=== PATIENT | male | born 1945 | race Caucasian/White ===

== ENCOUNTER 2017-09-11 01:15 | Inpatient (IN) | payer OTHER, MEDICARE ==
[2017-09-11] VITALS (12 sets, daily range): BP systolic 118–149; BP diastolic 65–92; PULSE 75–96; RESP 16–22; TEMP 97–99.2; O2SAT 84–96
[~2017-09-11] VITALS: Ht 175.3 cm; Wt 82.7 kg
--- NOTE | 2017-09-11 02:05 | PD ---
HPI Chief Complaint: Edema Time Seen by Provider: 01:52 Travel History International Travel<30 days: No Contact w/Intl Traveler<30days: No Traveled to known affect area: No History of Present Illness HPI The patient is a 72 year old male who presents to the [facility] emergency department with a history of developing right lower extremity swelling and pain on Saturday. He reports that today became slightly erythematous and warm to touch , therefore he came to the emergency department for evaluation and treatment. He reports that he has had some dyspnea on exertion, however he recently had open heart surgery on August 30. He reports that it was done in [place]. The patient is followed for his primary care by the [facility]. The patient reports having a history of hypertension and coronary artery disease. The patient reports that he has been on a low-dose aspirin daily. He reports that he believes that he is on a diuretic, however he cannot recall the names of his medications and his will be following him to the emergency department. The patient arrived by ambulance services. The patient was noted on arrival to have a room air saturation of 84%. The patient had been placed on 2 L nasal cannula by ambulance services. The patient reports that he had a cough postoperatively, however it has improved with time. The patient reports that on Saturday, he did have a lightheaded sensation and had his right leg buckled underneath him. The patient denies injuring his right leg, however he reports that he had calf pain after this occurred. He denies having any veins harvested from the right leg. He reports that he did have a vein harvested in the left in the wound is healing well. He denies having any known fevers. On review of systems otherwise, he denies having any neck pain, new chest pain, abdominal pain, vomiting, diarrhea, urinary symptoms, or neurologic symptoms. He reports that he has had a diminished appetite. He reports that he is also been constipated with his last bowel movement on Saturday. [facility] Past Medical History Narrative Medical The patient's past medical history is significant for coronary artery disease, hypertension, hyperlipidemia, history of seizure disorder, hypothyroid disorder Cardiovascular Problems: Yes Diabetes: No Diminished Hearing: No Hypertension: Yes Seizures: Yes (1977 LAST ONE) Tetanus Vaccination: < 5 Years Influenza Vaccination: No Past Surgical History Narrative Surgical The patient has a history of coronary artery bypass grafting of 4 vessels on August 30, 2017 and hemorrhoidectomy. Coronary Artery Bypass Graft: Yes (2018) Other Surgery: Yes (HEMMOROIDS REMOVED) Social History Alcohol Use: Yes ([place]) Tobacco Use: No Substance Use: No Allergies-Medications (Allergen,Severity, Reaction): Coded Allergies: bee venom protein (honey bee) (Verified Allergy, Unknown, 09/11/17) Reported Meds & Prescriptions Reported Meds & Active Scripts Active Reported Metoprolol Succinate ER 24 HR (Metoprolol Succinate) 25 Mg Tab 25 Mg PO BID Aspirin Children's (Aspirin) 81 Mg Chew 81 Mg CHEW DAILY Divalproex ER (Divalproex Sodium) 250 Mg Pedro 250 Mg PO BID Oxycodone (Oxycodone HCl) 5 Mg Tab 5 Mg PO Q6H PRN Atorvastatin (Atorvastatin Calcium) 80 Mg Tab 80 Mg PO HS Potassium Chloride ER (Potassium Chloride) 10 Meq Tab 10 Meq PO DAILY Famotidine 20 Mg Tab 20 Mg PO BID Furosemide 20 Mg Tab 20 Mg PO BID Levothyroxine (Levothyroxine Sodium) 50 Mcg Tab 50 Mcg PO DAILY Review of Systems Except as stated in HPI: all other systems reviewed are Neg General / Constitutional: No: Fever Eyes: No: Visual changes HENT: No: Headaches Cardiovascular: Positive: Dyspnea on exertion, No: Chest Pain or Discomfort Respiratory: Positive: Cough, Shortness of Breath Gastrointestinal: Positive: Constipation, Changes in Bowel Habits, Loss of Appetite, No: Nausea, Vomiting, Diarrhea, Abdominal Pain Genitourinary: No: Dysuria Musculoskeletal: Positive: Myalgias, Edema, Pain Skin: Positive Rash Neurologic: No: Weakness, Focal Abnormalities, Change in Mentation, Slurred Speech, Sensory Disturbance Psychiatric: No: Depression Endocrine: No: Polydipsia Hematologic/Lymphatic: No: Easy Bruising Physical Exam Narrative General: The patient is a well-developed well-nourished male in no acute distress. Head and Neck exam: Head is normocephalic atraumatic. Eyes: EOMI, pupils are equal round and reactive to light. Nose: Midline septum with pink mucous membranes Mouth: Dentition unremarkable. Moist mucus membranes. Posterior oropharynx is not erythematous. No tonsillar hypertrophy. Uvula midline. Airway patent. Neck: No palpable lymphadenopathy. No nuchal rigidity. No thyromegaly. Cardiovascular: Irregularly irregular with occasional premature atrial complexes on telemetry without murmurs, gallops, or rubs. No pulse deficit to the extremities on simultaneous auscultation and palpation of his radial artery. The patient has a midline incision over his chest that is healing well. Lungs: With decreased breath sounds in bilateral lung bases with crackles audible. No wheezes or rhonchi. No accessory muscle use. No paroxysmal abdominal breathing or tripoding. Abdomen: Soft, without tenderness to palpation in all 4 quadrants of the abdomen. No guarding, rebound, or rigidity. Normal bowel sounds are audible. No tenderness on palpation of McBurney's point. Extremities: No clubbing or cyanosis. The patient has trace pedal edema of the left lower extremity, 1-2+ of the right lower extremity with slight erythema from the knee down to the foot. The patient has an abrasion over the dorsum of the right foot. He is unsure how he acquired this. On examination of the left leg medial aspect just above the knee patient has an incision that was placed for vein harvest that appears to be healing well. 2+ pulses in all 4 extremities. Back: No spinous process tenderness to palpation. No costovertebral angle tenderness to palpation. Neurologic Exam: Grossly nonfocal. Skin Exam: No rash noted. Intact skin that is warm and dry. Data Data Last Documented VS Vital Signs Date Time Temp Pulse Resp B/P (MAP) Pulse Ox O2 Delivery O2 Flow Rate FiO2 09/11/17 01:57 20 84 Room Air 09/11/17 01:57 3.00 09/11/17 01:48 95 09/11/17 01:40 99.2 129/67 (87) Orders Orders Electrocardiogram (09/11/17 01:52) Complete Blood Count With Diff (09/11/17 01:52) Comprehensive Metabolic Panel (09/11/17 01:52) Creatine Kinase (Cpk) (09/11/17 01:52) Ckmb (Isoenzyme) Profile (09/11/17 01:52) Troponin I (09/11/17 01:52) B-Type Natriuretic Peptide (09/11/17 01:52) Prothrombin Time / Inr (Pt) (09/11/17 01:52) Act Partial Throm Time (Ptt) (09/11/17 01:52) C-Reactive Protein (Crp) (09/11/17 01:52) Urinalysis - C+S If Indicated (09/11/17 01:52) Magnesium (Mg) (09/11/17 01:52) Chest, Single Ap (09/11/17 01:52) Iv Access Insert/Monitor (09/11/17 01:52) Ecg Monitoring (09/11/17 01:52) Oximetry (09/11/17 01:52) Ct Pulmonary Angiogram (09/11/17 01:52) Us Leg Venous Doppler (09/11/17 01:52) CKMB (09/11/17 02:10) CKMB% (09/11/17 02:10) Heparin Inj (Heparin Inj) (09/11/17 03:15) Heparin-D5w 25,000 U/250 Ml (Heparin-D5w (09/11/17 03:15) Act Partial Throm Time (Ptt) (09/11/17 03:05) Cbc No Diff, Includes Plts (09/11/17 03:05) Cbc No Diff, Includes Plts (09/14/17 06:00) Occult Blood (Hemoccult) Stool (09/11/17 03:05) Admit Order (Ed Use Only) (09/11/17 04:17) Labs Laboratory Tests Test 09/11/17 02:10 09/11/17 02:25 09/11/17 03:40 White Blood Count 14.7 TH/MM3 14.2 TH/MM3 Red Blood Count 3.88 MIL/MM3 3.89 MIL/MM3 Hemoglobin 11.9 GM/DL 11.8 GM/DL Hematocrit 35.4 % 35.5 % Mean Corpuscular Volume 91.4 FL 91.2 FL Mean Corpuscular Hemoglobin 30.7 PG 30.3 PG Mean Corpuscular Hemoglobin Concent 33.6 % 33.3 % Red Cell Distribution Width 14.4 % 14.1 % Platelet Count 288 TH/MM3 285 TH/MM3 Mean Platelet Volume 8.4 FL 8.5 FL Neutrophils (%) (Auto) 75.0 % Lymphocytes (%) (Auto) 11.8 % Monocytes (%) (Auto) 11.6 % Eosinophils (%) (Auto) 0.7 % Basophils (%) (Auto) 0.9 % Neutrophils # (Auto) 11.1 TH/MM3 Lymphocytes # (Auto) 1.7 TH/MM3 Monocytes # (Auto) 1.7 TH/MM3 Eosinophils # (Auto) 0.1 TH/MM3 Basophils # (Auto) 0.1 TH/MM3 CBC Comment DIFF FINAL Differential Comment Prothrombin Time 13.0 SEC Prothromb Time International Ratio 1.3 RATIO Activated Partial Thromboplast Time 25.0 SEC 22.7 SEC Blood Urea Nitrogen 21 MG/DL Creatinine 1.39 MG/DL Random Glucose 88 MG/DL Total Protein 7.4 GM/DL Albumin 2.7 GM/DL Calcium Level 8.2 MG/DL Magnesium Level 2.3 MG/DL Alkaline Phosphatase 77 U/L Aspartate Amino Transf (AST/SGOT) 108 U/L Alanine Aminotransferase (ALT/SGPT) 121 U/L Total Bilirubin 1.1 MG/DL Sodium Level 137 MEQ/L Potassium Level 4.4 MEQ/L Chloride Level 103 MEQ/L Carbon Dioxide Level 24.1 MEQ/L Anion Gap 10 MEQ/L Estimat Glomerular Filtration Rate 50 ML/MIN Total Creatine Kinase 116 U/L Creatine Kinase MB LESS THAN 0.5 NG/ML Troponin I 0.14 NG/ML C-Reactive Protein 14.70 MG/DL B-Type Natriuretic Peptide 543 PG/ML Urine Color YELLOW Urine Turbidity CLEAR Urine pH 5.5 Urine Specific [place] 1.022 Urine Protein TRACE mg/dL Urine Glucose (UA) NEG mg/dL Urine Ketones NEG mg/dL Urine Occult Blood NEG Urine Nitrite NEG Urine Bilirubin NEG Urine Urobilinogen LESS THAN 2.0 MG/DL Urine Leukocyte Esterase NEG Urine RBC 1 /hpf Urine WBC 1 /hpf Urine Mucus FEW /lpf Microscopic Urinalysis Comment CULT NOT INDICATED MDM Medical Decision Making Medical Screen Exam Complete: Yes Emergency Medical Condition: Yes Medical Record Reviewed: Yes Interpretation(s) Last Impressions Lower Extremity Ultrasound 09/11/17151 Signed Impressions: Service Date/Time: Monday, September 11, 2017 02:32 - CONCLUSION: Positive for deep venous thrombosis in the proximal calf and popliteal region. James Cid MD Chest X-Ray 09/11/17151 Signed Impressions: Service Date/Time: Monday, September 11, 2017 02:01 - CONCLUSION: Left lower lung consolidation. James Cid MD CT Angiography 09/11/17151 Signed Impressions: Service Date/Time: Monday, September 11, 2017 04:23 - CONCLUSION: 1. Positive for pulmonary embolism with multiple segmental and subsegmental defects involving right upper, right middle, right lower, left upper, and left lingular segments. 2. Left lower lobe consolidation and pleural effusion. James Cid MD Differential Diagnosis Congestive heart failure, versus pericardial effusion, versus DVT, versus PE, versus postop pneumonia Narrative Course During the course of the patient's emergency department visit, the patient's history, examination, and differential diagnosis were reviewed with the patient. The patient was placed on a panel monitor with oximetry and frequent blood pressure monitoring. The patient had IV access obtained and blood work sent for analysis. The patient had an EKG done on arrival. The patient's EKG shows a sinus rhythm with occasional ectopic premature complexes, QRS duration 82 ms, QTC [address] segment elevation is noted. The patient's studies were reviewed and remarkable for a white count of 14.7, hemoglobin 11.9., Platelets 288 with 75 neutrophils, monocytes 11.6. CMP is remarkable for a BUN of 21, creatinine 1.59, glucose 88, calcium 8.2, total bilirubin 1.1, AST 108, ALT 121. CPK is 116, troponin I 0.14 which may be elevated just as a consequence of the patient's renal insufficiency, versus recent injury. C-reactive protein is 14.70 and elevated suggestive of infection , BNP is 543. PT 13, INR 1.3, PTT 25. Urinalysis is unremarkable. A chest x-ray shows a left lower lobe infiltrate. The patient was started on antibiotic for pneumonia coverage given the patient's elevated white blood cell count and elevated CRP. CTA reveals bilateral pulmonary embolisms. Ultrasound of the right lower extremity reveals DVT. The patient was started on heparin per DVT and PE protocol as a bolus then a drip. The patient's results were discussed with the patient, including the plan of care. I explained that further testing and/ or monitoring is indicated based on the patient's history, examination, and/ or laboratory findings. Therefore, I recommended admission for additional evaluation. The patient expressed understanding and was agreeable with this plan. The patient was admitted to the hospital in guarded condition and [facility] Physician Communication Physician Communication The patient's case including history, pertinent physical examination findings, and laboratory studies were discussed with Dr. Mendoza. It was agreed that [facility] Diagnosis Primary Impression: DVT (deep venous thrombosis) Qualified Codes: I82.401 - Acute embolism and thrombosis of unspecified deep veins of right lower extremity Additional Impressions: Pulmonary embolus Qualified Codes: I26.99 - Other pulmonary embolism without acute cor pulmonale Pulmonary infiltrate in left lung on chest x-ray Admitting Information Admitting Physician Requests: Admit Aniyah Enrique MD Sep 11, 2017 02:05
--- NOTE | 2017-09-11 02:18 | RADRPT ---
EXAM DATE/TIME: 09/11/2017 02:01 [facility] COMPARISON: No previous studies available for comparison. INDICATIONS : Shortness of breath. MEDICAL HISTORY : Hypertension. SURGICAL HISTORY : CABG. ENCOUNTER: Initial ACUITY: 1 day PAIN SCORE: 0/10 LOCATION: Bilateral chest FINDINGS: Mild motion blurring of the image. There is dense consolidation in the left mid and lower lung with loss of delineation of the entire left hemidiaphragm. Right lung is clear. The heart is mildly enla rged. Evidence of prior median sternotomy. CONCLUSION: Left lower lung consolidation. James Cid MD on September 11, 2017 at 2:16 Board Certified Radiologist. This report was verified electronically.
[2017-09-11 02:35] LABS: AUTOMATED NEUTROPHIL # 11.1 TH/MM3 (1.8-7.7); BASOPHIL # 0.1 TH/MM3 (0-0.2); BASOPHIL % 0.9 % (0.0-2.0); EOSINOPHIL # 0.1 TH/MM3 (0-0.4); EOSINOPHIL % 0.7 % (0.0-4.0); HEMATOCRIT 35.4 % (39.0-51.0); HEMOGLOBIN 11.9 GM/DL (13.0-17.0); LYMPH % 11.8 % (9.0-44.0); LYMPHOCYTE # 1.7 TH/MM3 (1.0-4.8); MEAN CELL VOLUME 91.4 FL (80.0-100.0); MEAN CORPUSCULAR HEMOGLOBIN 30.7 PG (27.0-34.0); MEAN CORPUSCULAR HGB CONC 33.6 % (32.0-36.0); MEAN PLATELET VOLUME 8.4 FL (7.0-11.0); MONO % 11.6 % (0.0-8.0); MONOCYTE # 1.7 TH/MM3 (0-0.9); PLATELET COUNT 288 TH/MM3 (150-450); RED BLOOD COUNT 3.88 MIL/MM3 (4.50-5.90); RED CELL DISTRIBUTION WIDTH 14.4 % (11.6-17.2); WHITE BLOOD COUNT 14.7 TH/MM3 (4.0-11.0)
[2017-09-11 02:42] LABS: INTERNATIONAL NORMALIZED RATIO 1.3 RATIO
[2017-09-11 02:51] LABS: BILIRUBIN, URINE NEG (NEG); BLOOD, URINE NEG (NEG); GLUCOSE,URINE NEG (NEG); KETONE, URINE NEG (NEG); MUCUS URINE FEW /lpf (OCC); NITRITE,URINE NEG (NEG); PH, URINE 5.5 (5.0-8.5); URINE COLOR YELLOW (YELLW/STRAW); URINE LEUKOCYTE ESTERASE NEG (NEG)
--- NOTE | 2017-09-11 02:54 | RADRPT ---
EXAM DATE/TIME: 09/11/2017 02:32 [facility] COMPARISON: No previous studies available for comparison. INDICATIONS : Right leg pain. Post cardiac surgery 08/30/17. MEDICAL HISTORY : Hypertension. SURGICAL HISTORY : Hemorrhoidectomy. CABG ENCOUNTER: Initial ACUITY: 2 day PAIN SCORE: 4/10 LOCATION: Right leg. TECHNIQUE: Venous ultrasound of the leg was performed from the inguinal ligament to the proximal calf. Real-juliet e, color Doppler and spectral tracing, compression and augmentation techniques were used. FINDINGS: Examination is abnormal demonstrating nonocclusive thrombus in the popliteal vein with lack of augmen tation of flow. There is also occlusive thrombus in the posterior tibial vein and absent flow and au gmentation. Flow is documented in the femoral vein. CONCLUSION: Positive for deep venous thrombosis in the proximal calf and popliteal region. James Cid MD on September 11, 2017 at 2:51 Board Certified Radiologist. This report was verified electronically.
[2017-09-11 02:58] LABS: ALBUMIN 2.7 GM/DL (3.4-5.0); ALKALINE PHOSPHATASE 77 U/L (45-117); ALT (GPT) 121 U/L (12-78); AST (GOT) 108 U/L (15-37); BICARBONATE 24.1 MEQ/L (21.0-32.0); BLOOD UREA NITROGEN 21 MG/DL (7-18); CALCIUM 8.2 MG/DL (8.5-10.1); CHLORIDE 103 MEQ/L (98-107); CREATININE 1.39 MG/DL (0.60-1.30); GLOMERULAR FILTRATION RATE 50 ML/MIN (>89); GLUCOSE,RANDOM 88 MG/DL (74-106); MAGNESIUM 2.3 MG/DL (1.5-2.5); SODIUM (NA) 137 MEQ/L (136-145); TOTAL BILIRUBIN ADULT 1.1 MG/DL (0.2-1.0); TOTAL PROTEIN 7.4 GM/DL (6.4-8.2); TROPONIN I 0.14 NG/ML (0.02-0.05)
[2017-09-11] MEDS ORDERED: HEPARIN SODIUM - IV 10,000 UNITS/10 ML VIAL IV ONE (03:15)
[2017-09-11] MEDS: HEPARIN-D5W 25,000 U/250 ML 250 ML IV PRN (03:45)
[2017-09-11] MEDS ORDERED: DIVA250T3 PO (03:53)
[2017-09-11] MEDS ORDERED: ATOR80TA45 PO (03:53)
[2017-09-11] MEDS ORDERED: FAMO20TA2 PO (03:53)
[2017-09-11] MEDS ORDERED: LEVO50TA4 PO (03:53)
[2017-09-11] MEDS ORDERED: POTA10TA2 PO (03:53)
[2017-09-11] MEDS ORDERED: METO1TAB42 PO (03:53)
[2017-09-11] MEDS ORDERED: OXYC-392 PO (03:53)
[2017-09-11] MEDS ORDERED: FURO20TA PO (03:53)
[2017-09-11] MEDS ORDERED: ASPI81CH7 CHEW (03:53)
[2017-09-11 03:54] LABS: HEMATOCRIT 35.5 % (39.0-51.0); HEMOGLOBIN 11.8 GM/DL (13.0-17.0); MEAN CELL VOLUME 91.2 FL (80.0-100.0); MEAN CORPUSCULAR HEMOGLOBIN 30.3 PG (27.0-34.0); MEAN CORPUSCULAR HGB CONC 33.3 % (32.0-36.0); MEAN PLATELET VOLUME 8.5 FL (7.0-11.0); PLATELET COUNT 285 TH/MM3 (150-450); RED BLOOD COUNT 3.89 MIL/MM3 (4.50-5.90); RED CELL DISTRIBUTION WIDTH 14.1 % (11.6-17.2); WHITE BLOOD COUNT 14.2 TH/MM3 (4.0-11.0)
[2017-09-11] MEDS ORDERED: IOHEXOL 350 MG/ML 10 ML VIAL (for RAD DIAG) IVCONTRAST ONE (04:35)
--- NOTE | 2017-09-11 04:45 | RADRPT ---
EXAM DATE/TIME: 09/11/2017 04:23 [facility] COMPARISON: No previous studies available for comparison. INDICATIONS : Shortness of breath two weeks post CABG. IV CONTRAST: 75 cc Omnipaque 350 (iohexol) IV RADIATION DOSE: 10.62 CTDIvol (mGy) MEDICAL HISTORY : Cardiovascular disease. Hypertension. SURGICAL HISTORY : CABG ENCOUNTER: Initial ACUITY: 1 day PAIN SCALE: 5/10 LOCATION: Bilateral cranial TECHNIQUE: Volumetric scanning of the chest was performed using a pulmonary embolism protocol MIP images were re constructed. Using automated exposure control and adjustment of the mA and/or kV according to patien t size, radiation dose was kept as low as reasonably achievable to obtain optimal diagnostic quality images. DICOM format image data is available electronically for review and comparison. Follow-up recommendations for detected pulmonary nodules are based at a minimum on nodule size and pa tient risk factors according to Fleischner Society Guidelines. FINDINGS: PULMONARY ARTERIES: There are multiple filling defects in subsegmental arteries supplying the right middle lobe and multi ple segments in the right lower lobe. There is also filling defect in the central right upper lobe p ulmonary artery. On the left side, segmental defects seen in the left upper lobe, lingula and one ba maciej segment artery. LUNGS: Multisegmental consolidation left lower lobe air bronchograms. PLEURAE: Left pleural effusion measures 2.0 cm. MEDIASTINUM: There is good visualization of the great vessels of the middle mediastinum. No evidence of mediastin al or hilar adenopathy/mass. CONCLUSION: 1. Positive for pulmonary embolism with multiple segmental and subsegmental defects involving right u pper, right middle, right lower, left upper, and left lingular segments. 2. Left lower lobe consolidation and pleural effusion. James Cid MD on September 11, 2017 at 4:40 Board Certified Radiologist. This report was verified electronically.
[2017-09-11] MEDS ORDERED: AZITHROMYCIN INJ 500 MG in SODIUM CHLOR 0.9% 250 ML INJ 250 ML IV ONE (05:00)
[2017-09-11] MEDS ORDERED: cefTRIAXone INJ 1,000 MG in SODIUM CHLORIDE 0.9% INJ 100 ML IV ONE (05:00)
[2017-09-11] MEDS ORDERED: NALOXONE HCL 0.4 MG/ML AMP IV PUSH PRN (05:45)
[2017-09-11] MEDS ORDERED: SODIUM CHLORIDE 0.9% FLUSH 10 ML FLUSH IV FLUSH PRN (05:45)
[2017-09-11] MEDS: LEVOTHYROXINE SODIUM 50 MCG TAB PO SCH (08:05)
[2017-09-11] MEDS: SODIUM CHLORIDE 0.9% FLUSH 10 ML FLUSH IV FLUSH SCH ×2 (09:00→22:04)
[2017-09-11] MEDS: METOPROLOL SUCCINATE 25 MG EXTENDED RELEASE TAB PO SCH ×2 (09:38→22:03)
[2017-09-11] MEDS: FAMOTIDINE 20 MG TAB PO SCH ×2 (09:38→22:03)
[2017-09-11] MEDS: ASPIRIN 81 MG CHEW TAB CHEW SCH (09:38)
[2017-09-11] MEDS: DIVALPROEX SODIUM E.R. 250 MG TAB PO SCH ×2 (09:39→22:03)
[2017-09-11] MEDS: POTASSIUM CHLORIDE 10 MEQ CONTROLLED RELEASE TAB PO SCH (09:39)
--- NOTE | 2017-09-11 12:50 | HHI.HP ---
[facility] Admission Diagnosis DVT post CABG on 08/30 Diagnoses: (1) Pulmonary embolism (2) CAD (coronary artery disease) (3) DVT of lower limb, acute Chief Complaint: Right lower extremity pain Travel History International Travel<30 Days: No Contact w/Intl Traveler <30 Da: No Traveled to Known Affected Are: No History of Present Illness 72-year-old man with a history of CAD, with recent CABG 4 on 08/30/17 presented to the ED for evaluation of 2-3 days history of right lower extremity swelling and pain rated 4/10 in intensity however without any complaint of shortness of breath. Patient states, after his surgery on 08/30/17 was discharged home on 09/03/17, however did not have any complaint of right lower extremity swelling at a time. 2-3 days post discharge patient noticed some swelling of his right lower extremity mostly secondary to ambulation. He also noted dizziness however denies any shortness of breath. When patient presented to the ED, he had positive Lower extremity Doppler as well as CTA for PE. He denies any GI bleed. Review of Systems Except as stated in HPI: all other systems reviewed are Neg Past Family Social History Past Medical History coronary artery disease, hypertension, hyperlipidemia, history of seizure disorder, hypothyroid disorder Cardiovascular Problems: Yes Hypertension: Yes Seizures: Yes (1977 LAST ONE) Past Surgical History coronary artery bypass grafting of 4 vessels on August 30, 2017 hemorrhoidectomy. Reported Medications Metoprolol Succinate ER 24 HR (Metoprolol Succinate) 25 Mg Tab 25 Mg PO BID Aspirin Children's (Aspirin) 81 Mg Chew 81 Mg CHEW DAILY Divalproex ER (Divalproex Sodium) 250 Mg Pedro 250 Mg PO BID Oxycodone (Oxycodone HCl) 5 Mg Tab 5 Mg PO Q6H PRN Atorvastatin (Atorvastatin Calcium) 80 Mg Tab 80 Mg PO HS Potassium Chloride ER (Potassium Chloride) 10 Meq Tab 10 Meq PO DAILY Famotidine 20 Mg Tab 20 Mg PO BID Furosemide 20 Mg Tab 20 Mg PO BID Levothyroxine (Levothyroxine Sodium) 50 Mcg Tab 50 Mcg PO DAILY Allergies: Coded Allergies: bee venom protein (honey bee) (Verified Allergy, Unknown, 09/11/17) Family History Father from complication of CHF Mother from complication of sclerosis of the liver Social History Alcohol Use: Yes (OCASS) Tobacco Use: No Substance Use: No Physical Exam Vital Signs Vital Signs Date Time Temp Pulse Resp B/P (MAP) Pulse Ox O2 Delivery O2 Flow Rate FiO2 09/11/17 10:59 89 17 122/65 (84) 92 Nasal Cannula 4.00 09/11/17 07:04 84 22 122/69 (86) 95 Nasal Cannula 4.00 09/11/17 05:46 88 20 126/67 (86) Nasal Cannula 4.00 94 09/11/17 01:57 20 84 Room Air 09/11/17 01:57 20 91 Nasal Cannula 3.00 09/11/17 01:48 95 20 91 Nasal Cannula 3.00 09/11/17 01:40 99.2 96 20 129/67 (87) 92 Physical Exam GENERAL: This is a well-nourished, well-developed patient, in no apparent distress. SKIN: No rashes, ecchymoses or lesions. Cool and dry. HEAD: Atraumatic. Normocephalic. No temporal or scalp tenderness. EYES: Pupils equal round and reactive. Extraocular motions intact. No scleral icterus. No injection or drainage. ENT: Nose without bleeding, purulent drainage or septal hematoma. Throat without erythema, tonsillar hypertrophy or exudate. Uvula midline. Airway patent. NECK: Trachea midline. No JVD or lymphadenopathy. Supple, nontender, no meningeal signs. CARDIOVASCULAR: Regular rate and rhythm without murmurs, gallops, or rubs. RESPIRATORY: Clear to auscultation. Breath sounds equal bilaterally. No wheezes , rales, or rhonchi. GASTROINTESTINAL: Abdomen soft, non-tender, nondistended. No hepato-splenomegaly , or palpable masses. No guarding. MUSCULOSKELETAL: Extremities without clubbing, cyanosis, or edema. No joint tenderness, effusion, or edema noted. + right calf tenderness. + Homans sign bilaterally RLE. Right leg>Left in size NEUROLOGICAL: Awake and alert. Cranial nerves II through XII intact. Motor and sensory grossly within normal limits. Five out of 5 muscle strength in all muscle groups. Normal speech. Laboratory Laboratory Tests Test 09/11/17 02:10 09/11/17 02:25 09/11/17 03:40 09/11/17 09:45 White Blood Count 14.7 14.2 Red Blood Count 3.88 3.89 Hemoglobin 11.9 11.8 Hematocrit 35.4 35.5 Mean Corpuscular Volume 91.4 91.2 Mean Corpuscular Hemoglobin 30.7 30.3 Mean Corpuscular Hemoglobin Concent 33.6 33.3 Red Cell Distribution Width 14.4 14.1 Platelet Count 288 285 Mean Platelet Volume 8.4 8.5 Neutrophils (%) (Auto) 75.0 Lymphocytes (%) (Auto) 11.8 Monocytes (%) (Auto) 11.6 Eosinophils (%) (Auto) 0.7 Basophils (%) (Auto) 0.9 Neutrophils # (Auto) 11.1 Lymphocytes # (Auto) 1.7 Monocytes # (Auto) 1.7 Eosinophils # (Auto) 0.1 Basophils # (Auto) 0.1 CBC Comment DIFF FINAL Differential Comment Prothrombin Time 13.0 Prothromb Time International Ratio 1.3 Activated Partial Thromboplast Time 25.0 22.7 93.3 Blood Urea Nitrogen 21 Creatinine 1.39 Random Glucose 88 Total Protein 7.4 Albumin 2.7 Calcium Level 8.2 Magnesium Level 2.3 Alkaline Phosphatase 77 Aspartate Amino Transf (AST/SGOT) 108 Alanine Aminotransferase (ALT/SGPT) 121 Total Bilirubin 1.1 Sodium Level 137 Potassium Level 4.4 Chloride Level 103 Carbon Dioxide Level 24.1 Anion Gap 10 Estimat Glomerular Filtration Rate 50 Total Creatine Kinase 116 Creatine Kinase MB LESS THAN 0.5 Troponin I 0.14 C-Reactive Protein 14.70 B-Type Natriuretic Peptide 543 Urine Color YELLOW Urine Turbidity CLEAR Urine pH 5.5 Urine Specific [place] 1.022 Urine Protein TRACE Urine Glucose (UA) NEG Urine Ketones NEG Urine Occult Blood NEG Urine Nitrite NEG Urine Bilirubin NEG Urine Urobilinogen LESS THAN 2.0 Urine Leukocyte Esterase NEG Urine RBC 1 Urine WBC 1 Urine Mucus FEW Microscopic Urinalysis Comment CULT NOT INDICATED Date/Time Source Procedure Growth Status 09/11/17 05:35 Blood Peripheral Aerobic Blood Culture Pending Received 09/11/17 05:35 Blood Peripheral Anaerobic Blood Culture Pending Received Result Diagram: 09/11/17 0340 09/11/17 0210 Imaging Last Impressions Lower Extremity Ultrasound 3/21/18 0152 Signed Impressions: Service Date/Time: Monday, September 11, 2017 02:32 - CONCLUSION: Positive for deep venous thrombosis in the proximal calf and popliteal region. James Cid MD Chest X-Ray 09/11/17151 Signed Impressions: Service Date/Time: Monday, September 11, 2017 02:01 - CONCLUSION: Left lower lung consolidation. James Cid MD CT Angiography 09/11/17151 Signed Impressions: Service Date/Time: Monday, September 11, 2017 04:23 - CONCLUSION: 1. Positive for pulmonary embolism with multiple segmental and subsegmental defects involving right upper, right middle, right lower, left upper, and left lingular segments. 2. Left lower lobe consolidation and pleural effusion. James Cid MD Septic Shock Reassessment Septic shock perfusion: reassessment completed Caprini VTE Risk Assessment Caprini VTE Risk Assessment: Mod/High Risk (score >= 2) Caprini Risk Assessment Model Point Value = 1 Point Value = 2 Point Value = 3 Point Value = 5 Age 41-60 Minor surgery BMI > 25 kg/m2 Swollen legs Varicose veins or History of unexplained or recurrent spontaneous Oral contraceptives or hormone replacement Sepsis (< 1 month) Serious lung disease, including pneumonia (< 1 month) Abnormal pulmonary function Acute myocardial infarction Congestive heart failure (< 1 month) History of inflammatory bowel disease Medical patient at bed rest Age 61-74 Arthroscopic surgery Major open surgery (> 45 min) Laparoscopic surgery (> 45 min) Malignancy Confined to bed (> 72 hours) Immobilizing plaster cast Central venous access Age >= 75 History of VTE Family history of VTE Factor V Leiden Prothrombin [id number] Lupus anticoagulant Anticardiolipin antibodies Elevated serum homocysteine Heparin-induced thrombocytopenia Other congenital or acquired thrombophilia Stroke (< 1 month) Elective arthroplasty Hip, pelvis, or leg fracture Acute spinal cord injury (< 1 month) Prophylaxis Regimen Total Risk Factor Score Risk Level Prophylaxis Regimen 0-1 Low Early ambulation 2 Moderate Order ONE of the following: *Sequential Compression Device (SCD) *Heparin 5000 units SQ BID 3-4 Higher Order ONE of the following medications: *Heparin 5000 units SQ TID *Enoxaparin/Lovenox 40 mg SQ daily (WT < 150 kg, CrCl > 30 mL/min) *Enoxaparin/Lovenox 30 mg SQ daily (WT < 150 kg, CrCl > 10-29 mL/min) *Enoxaparin/Lovenox 30 mg SQ BID (WT < 150 kg, CrCl > 30 mL/min) AND/OR *Sequential Compression Device (SCD) 5 or more Highest Order ONE of the following medications: *Heparin 5000 units SQ TID (Preferred with Epidurals) *Enoxaparin/Lovenox 40 mg SQ daily (WT < 150 kg, CrCl > 30 mL/min) *Enoxaparin/Lovenox 30 mg SQ daily (WT < 150 kg, CrCl > 10-29 mL/min) *Enoxaparin/Lovenox 30 mg SQ BID (WT < 150 kg, CrCl > 30 mL/min) AND *Sequential Compression Device (SCD) Assessment and Plan Problem List: (1) Pulmonary embolism ICD Code: I26.99 - Other pulmonary embolism without acute cor pulmonale (2) DVT of lower limb, acute ICD Code: I82.409 - Acute embolism and thrombosis of unspecified deep veins of unspecified lower extremity (3) HCAP (healthcare-associated pneumonia) ICD Code: J18.9 - Pneumonia, unspecified organism (4) CAD (coronary artery disease) ICD Code: I25.10 - Atherosclerotic heart disease of habematolel coronary artery without angina pectoris Assessment and Plan 72-year-old man with Pulmonary embolism Right lower extremity DVT CTA noted and review with finding of pulmonary embolism Right lower extremity Doppler positive for DVT Currently on heparin drip and consult hematology for evaluation Hospital acquired pneumonia in a patient with recent hospitalization CTA positive for left lower lobe consolidation Continue Rocephin and azithromycin Leukocytosis Secondary to above infectious process Recent CABG 08/30/17 CAD Resume outpatient medications History of hypertension, hyperlipidemia, history of seizure disorder, hypothyroid disorder Resume outpatient medications DVT prophylaxis: Heparin drip Code Status Full code Discussed Condition With Patient Physician Certification 2 Midnight Certification Type: Admission for Inpatient Services Order for Inpatient Services The services are ordered in accordance with Medicare regulations or non- Medicare payer requirements, as applicable. In the case of services not specified as inpatient-only, they are appropriately provided as inpatient services in accordance with the 2-midnight benchmark. Estimated LOS (days): 2 days is the estimated time the patient will need to remain in the hospital, assuming treatment plan goals are met and no additional complications. Post-Hospital Plan: Not yet determined Maurisio Donis MD Sep 11, 2017 12:50
--- NOTE | 2017-09-11 20:30 | EKG ---
Date Performed: 09/11/2017 Time Performed: 01:53:29 PTAGE: 72 years EKG: Sinus rhythm WITH OCCASIONAL ECTOPIC PREMATURE COMPLEXES MINIMAL VOLTAGE CRITERIA FOR LVH, CONSIDER NORMAL VARIAN T NONSPECIFIC T-WAVE ABNORMALITY BORDERLINE ECG INTERPRETATION BASED ON A DEFAULT AGE OF 40 YEARS NO PREVIOUS TRACING DOCTOR: Ge Rodrigez Interpretating Date/Time 09/11/2017 20:29:04
[2017-09-11] MEDS: ATORVASTATIN 80 MG TAB PO SCH (22:03)
[2017-09-12] VITALS (26 sets, daily range): BP systolic 107–131; BP diastolic 66–77; PULSE 75–173; RESP 18–20; TEMP 97.5–98.5; O2SAT 92–97
[2017-09-12] MEDS: HEPARIN-D5W 25,000 U/250 ML 250 ML IV PRN (01:18)
[2017-09-12] MEDS: AZITHROMYCIN 250 MG TAB PO SCH (06:34)
[2017-09-12] MEDS: LEVOTHYROXINE SODIUM 50 MCG TAB PO SCH (06:34)
[2017-09-12] MEDS: cefTRIAXone INJ 1,000 MG in SODIUM CHLORIDE 0.9% INJ 100 ML IV SCH (07:42)
[2017-09-12 09:06] LABS: AUTOMATED NEUTROPHIL # 8.3 TH/MM3 (1.8-7.7); BASOPHIL # 0.1 TH/MM3 (0-0.2); BASOPHIL % 0.9 % (0.0-2.0); EOSINOPHIL # 0.2 TH/MM3 (0-0.4); EOSINOPHIL % 1.9 % (0.0-4.0); HEMATOCRIT 33.8 % (39.0-51.0); HEMOGLOBIN 11.2 GM/DL (13.0-17.0); LYMPH % 13.6 % (9.0-44.0); LYMPHOCYTE # 1.5 TH/MM3 (1.0-4.8); MEAN CELL VOLUME 91.6 FL (80.0-100.0); MEAN CORPUSCULAR HEMOGLOBIN 30.3 PG (27.0-34.0); MEAN CORPUSCULAR HGB CONC 33.1 % (32.0-36.0); MEAN PLATELET VOLUME 8.9 FL (7.0-11.0); MONO % 10.2 % (0.0-8.0); MONOCYTE # 1.2 TH/MM3 (0-0.9); NEUT % 73.4 % (16.0-70.0); PLATELET COUNT 285 TH/MM3 (150-450); RED BLOOD COUNT 3.69 MIL/MM3 (4.50-5.90); WHITE BLOOD COUNT 11.3 TH/MM3 (4.0-11.0)
[2017-09-12] MEDS: ASPIRIN 81 MG CHEW TAB CHEW SCH (09:22)
[2017-09-12] MEDS: FAMOTIDINE 20 MG TAB PO SCH (09:22)
[2017-09-12] MEDS: METOPROLOL SUCCINATE 25 MG EXTENDED RELEASE TAB PO SCH ×2 (09:22→22:18)
[2017-09-12] MEDS: ENOXAPARIN SODIUM 80 MG/0.8 ML SYRINGE SQ SCH ×2 (09:22→22:19)
[2017-09-12] MEDS: DIVALPROEX SODIUM E.R. 250 MG TAB PO SCH ×2 (09:23→22:19)
[2017-09-12] MEDS: FUROSEMIDE 20 MG TAB PO SCH ×2 (09:23→20:01)
[2017-09-12] MEDS: POTASSIUM CHLORIDE 10 MEQ CONTROLLED RELEASE TAB PO SCH (09:23)
[2017-09-12] MEDS: SODIUM CHLORIDE 0.9% FLUSH 10 ML FLUSH IV FLUSH SCH ×2 (09:24→22:19)
--- NOTE | 2017-09-12 09:25 | MB ---
cc: Roseann Erickson MD,Maurisio SCALES DATE: 09/11/2017 REFERRING PHYSICIAN: Dr. Maurisio Donis CHIEF COMPLAINT: Dr. Donis requests a consultation for Mr. Millard regarding newly diagnosed right lower extremity deep vein thrombosis associated with pulmonary embolism. HISTORY OF PRESENT ILLNESS: Mr. Millard is a 72-year-old man with significant family history of coronary artery disease. He is a patient at [facility], has a primary physician there. He apparently had a stress test that was abnormal. He was sent to [facility] for a cardiac catheterization that shows extensive disease. He was transferred to [place], where he underwent quadruple bypass surgery. He was discharged on Saturday, the . He tolerated his surgery well. Apparently, his chest tube was removed 2 days prior to his discharge. He was ambulating at home. He twisted his knee several days prior to his presentation. Since then, he has had pain and swelling of the right foot. He has also had progressive symptoms of dyspnea on exertion. He had lightheaded. He presented to the emergency room with right lower extremity swelling, foot swelling. Doppler ultrasound of the right lower extremity showed a deep vein thromboses of the proximal calf and popliteal region. CT angiogram showed positive pulmonary embolism with multiple segments and subsegmental defects in the right upper, right middle, right lower, left upper and left lingular segments. There is some left lower lobe consolidation and pleural effusion. He was started on unfractionated heparin. He was seen in consultation. He reports continued pain in the right arm, where the cardiac catheterization underwent. He reports a blood pressure cuff was kept there during his hospitalization. He has an ache at his surgical site, which is about a 2/10. He feels the discomfort as he moves his arms. He is noted to have mild renal insufficiency with a creatinine 1.39, estimated glomerular rate of 50. The patient reports that he was normal previously. His bilirubin was elevated at 1.1, AST 108, ALT 121, alkaline phosphatase is 77. He is mildly anemic. White blood cell count is elevated. His platelet count is normal. Hematology/Oncology is consulted for a provoked right lower extremity deep vein thromboses and bilateral pulmonary embolism. PAST MEDICAL HISTORY: Coronary artery disease, hypertension, seizure disorder. PAST SURGICAL HISTORY: Coronary artery bypass graft x 4 on 08/30/2017, cardiac catheterization, hemorrhoid surgery. SOCIAL HISTORY: Drinks alcohol occasionally. Denies any tobacco or illicit drug use. He is , lives with his . FAMILY HISTORY: Mother had colon cancer in her 60s, in her 90s. Father had congestive heart failure and in his late 80s. PHYSICAL EXAMINATION: VITAL SIGNS: Temperature 97.0, heart rate 91, respiratory rate 16, blood pressure 149/92, saturation 94%. GENERAL: Mr. Millard is a well-developed, well-nourished man who looks his stated age. HEENT: His pupils are round, reactive to light and accommodation. Oropharynx is clear. NECK: Supple. LUNGS: Clear to auscultation. CARDIOVASCULAR: Reveals mild tachycardia. ABDOMEN: Benign. MUSCULOSKELETAL: Lower extremity with asymmetry, right leg more prominent than the left. There is some warmth, erythema of the right leg and swollen right foot. His median sternotomy scar is healed. He has a scab and no sign of dehiscence. ASSESSMENT AND PLAN: Mr. Millard is a 72-year-old man with a history of hypertension, seizure and coronary artery disease requiring coronary artery bypass graft x 4 on August 30. His course is complicated by a buckling of his knee versus injury and lightheadedness. He is ultimately diagnosed with a right lower extremity deep vein thrombosis and pulmonary embolism. I had a lengthy discussion with Mr. Andrews and his present at the consultation, diagnosis of venous thromboembolic event. He has a precipitated event. Right leg swelling and pulmonary embolism is confirmed by imaging study. He will need anticoagulant therapy from 3-6 months. He will assess with his manager retail store or primary physician duration of anticoagulant therapy. We discussed the anticoagulant therapy options from Coumadin to the new oral anticoagulants. He is dependent on the [facility] to get his medications. We discussed making an appointment with the [facility] primary care physician as soon as possible. While hospitalized, I will keep him on unfractionated heparin, switch to low molecular weight heparin. He is a good candidate for the newer oral anticoagulant provided his kidney function remains stable. I will repeat a CMP tomorrow. Significance of the mild elevation in bilirubin and AST is not clear. I have no other baseline labs. This may be related to his recent procedure. I have no history of hepatitis. He has a mild normocytic anemia. No evidence of thrombocytopenia. He has had no bleeding. We discussed the risks and benefits of the anticoagulant therapy. outreach worker will be consulted to get a free sample of Eliquis 5 mg twice a day for the first month, allowing him to [facility] to determine formulary medications that is available to him. Mr. Millard's questions were answered to his satisfaction. MD PEDRO Abarca/JULY , 08:24 PM , 09:22 PM
[2017-09-12 09:34] LABS: ALBUMIN 2.3 GM/DL (3.4-5.0); AST (GOT) 86 U/L (15-37); BICARBONATE 21.6 MEQ/L (21.0-32.0); BLOOD UREA NITROGEN 16 MG/DL (7-18); CHLORIDE 107 MEQ/L (98-107); CREATININE 1.08 MG/DL (0.60-1.30); GLOMERULAR FILTRATION RATE 67 ML/MIN (>89); GLUCOSE,RANDOM 91 MG/DL (74-106); SODIUM (NA) 139 MEQ/L (136-145)
[2017-09-12 09:39] LABS: ALKALINE PHOSPHATASE 79 U/L (45-117); ALT (GPT) 104 U/L (12-78); TOTAL BILIRUBIN ADULT 0.8 MG/DL (0.2-1.0); TOTAL PROTEIN 6.8 GM/DL (6.4-8.2)
--- NOTE | 2017-09-12 10:41 | HHI.PR ---
Subjective Remarks Follow-up pulmonary embolism/right lower extremity DVT/hospital-acquired pneumonia 09/12/17-patient seen and examined, reports improvement of right lower extremity swelling and denies any significant shortness of breath. No acute event overnight Objective Vitals Vital Signs Date Time Temp Pulse Resp B/P (MAP) Pulse Ox O2 Delivery O2 Flow Rate FiO2 09/12/17 07:40 75 09/12/17 07:40 97.8 75 20 128/75 (92) 94 09/12/17 06:00 87 09/12/17 05:00 86 09/12/17 04:00 85 09/12/17 04:00 98.5 89 18 127/76 (93) 94 09/12/17 03:00 85 09/12/17 00:00 98.5 95 18 131/77 (95) 94 09/11/17 23:32 Nasal Cannula 4.00 09/11/17 20:00 98.2 85 18 125/73 (90) 93 09/11/17 18:01 83 09/11/17 17:00 84 09/11/17 16:00 88 09/11/17 15:37 97.0 91 16 149/92 (111) 94 09/11/17 15:21 09/11/17 14:40 87 17 118/68 (85) 96 Nasal Cannula 4.00 09/11/17 10:59 89 17 122/65 (84) 92 Nasal Cannula 4.00 I/O 09/11/17 09/11/17 09/11/17 09/12/17 09/12/17 09/12/17 07:00 15:00 23:00 07:00 15:00 23:00 Intake Total 100 ml 250 ml 240 ml 240 ml Output Total 450 ml 250 ml 550 ml Balance -350 ml 250 ml -10 ml -310 ml Intake Oral 240 ml 240 ml IV Total 100 ml 250 ml Output Urine Total 450 ml 250 ml 550 ml # Voids 2 Result Diagram: 09/12/1782409/12/17824 Imaging Last Impressions Lower Extremity Ultrasound 09/11/17151 Signed Impressions: Service Date/Time: Monday, September 11, 2017 02:32 - CONCLUSION: Positive for deep venous thrombosis in the proximal calf and popliteal region. James Cid MD Chest X-Ray 09/11/17151 Signed Impressions: Service Date/Time: Monday, September 11, 2017 02:01 - CONCLUSION: Left lower lung consolidation. James Cid MD CT Angiography 09/11/17151 Signed Impressions: Service Date/Time: Monday, September 11, 2017 04:23 - CONCLUSION: 1. Positive for pulmonary embolism with multiple segmental and subsegmental defects involving right upper, right middle, right lower, left upper, and left lingular segments. 2. Left lower lobe consolidation and pleural effusion. James Cid MD Objective Remarks GENERAL: NAD SKIN: Warm and dry. HEAD: Normocephalic. EYES: No scleral icterus. No injection or drainage. NECK: Supple, trachea midline. No JVD or lymphadenopathy. CARDIOVASCULAR: Regular rate and rhythm without murmurs, gallops, or rubs. RESPIRATORY: Breath sounds equal bilaterally. No accessory muscle use. GASTROINTESTINAL: Abdomen soft, non-tender, nondistended. MUSCULOSKELETAL: No cyanosis, or edema. RLE>LLE in size BACK: Nontender without obvious deformity. No CVA tenderness. A/P Problem List: (1) Pulmonary embolism ICD Code: I26.99 - Other pulmonary embolism without acute cor pulmonale (2) DVT of lower limb, acute ICD Code: I82.409 - Acute embolism and thrombosis of unspecified deep veins of unspecified lower extremity (3) HCAP (healthcare-associated pneumonia) ICD Code: J18.9 - Pneumonia, unspecified organism (4) CAD (coronary artery disease) ICD Code: I25.10 - Atherosclerotic heart disease of circle coronary artery without angina pectoris Assessment and Plan Pulmonary embolism Right lower extremity DVT CTA with finding of pulmonary embolism Right lower extremity Doppler positive for DVT s/p heparin drip and currently on Lovenox subcutaneous every 12 hours per hematology Likely will be discharge on Eliquis 5 mg twice a day Hospital acquired pneumonia in a patient with recent hospitalization CTA positive for left lower lobe consolidation Continue Rocephin and azithromycin Leukocytosis Secondary to above infectious process Recent CABG 08/30/17 CAD Continue outpatient medications History of hypertension, hyperlipidemia, history of seizure disorder, hypothyroid disorder Continue outpatient medications Transaminitis Unclear etiology However trending down since admission Hepatitis profile? DVT prophylaxis: Maurisio Novak MD Sep 12, 2017 10:41
--- NOTE | 2017-09-12 13:56 | PD.ONC.PN ---
Subjective Subjective Remarks Afebrile Patient asking when the swelling in his right leg will go down Denies shortness of breath Denies chest pain Objective Data Date Time Temp Pulse Resp B/P (MAP) Pulse Ox O2 Delivery O2 Flow Rate FiO2 09/12/17 12:00 98.0 89 18 107/66 (80) 93 09/12/17 07:40 75 09/12/17 07:40 97.8 75 20 128/75 (92) 94 09/12/17 06:00 87 09/12/17 05:00 86 09/12/17 04:00 85 09/12/17 04:00 98.5 89 18 127/76 (93) 94 09/12/17 03:00 85 09/12/17 00:00 98.5 95 18 131/77 (95) 94 09/11/17 23:32 Nasal Cannula 4.00 09/11/17 20:00 98.2 85 18 125/73 (90) 93 09/11/17 18:01 83 09/11/17 17:00 84 09/11/17 16:00 88 09/11/17 15:37 97.0 91 16 149/92 (111) 94 09/11/17 15:21 09/11/17 14:40 87 17 118/68 (85) 96 Nasal Cannula 4.00 09/12/17 09/12/17 09/12/17 07:00 15:00 23:00 Intake Total 240 ml Output Total 550 ml Balance -310 ml Result Diagram: 09/12/17 0825 09/12/17 0825 Laboratory Results Laboratory Tests Test 09/11/17 22:26 09/12/17 08:25 Activated Partial Thromboplast Time 43.9 SEC 34.2 SEC White Blood Count 11.3 TH/MM3 Red Blood Count 3.69 MIL/MM3 Hemoglobin 11.2 GM/DL Hematocrit 33.8 % Mean Corpuscular Volume 91.6 FL Mean Corpuscular Hemoglobin 30.3 PG Mean Corpuscular Hemoglobin Concent 33.1 % Red Cell Distribution Width 14.0 % Platelet Count 285 TH/MM3 Mean Platelet Volume 8.9 FL Neutrophils (%) (Auto) 73.4 % Lymphocytes (%) (Auto) 13.6 % Monocytes (%) (Auto) 10.2 % Eosinophils (%) (Auto) 1.9 % Basophils (%) (Auto) 0.9 % Neutrophils # (Auto) 8.3 TH/MM3 Lymphocytes # (Auto) 1.5 TH/MM3 Monocytes # (Auto) 1.2 TH/MM3 Eosinophils # (Auto) 0.2 TH/MM3 Basophils # (Auto) 0.1 TH/MM3 CBC Comment DIFF FINAL Differential Comment Blood Urea Nitrogen 16 MG/DL Creatinine 1.08 MG/DL Random Glucose 91 MG/DL Total Protein 6.8 GM/DL Albumin 2.3 GM/DL Calcium Level 8.0 MG/DL Alkaline Phosphatase 79 U/L Aspartate Amino Transf (AST/SGOT) 86 U/L Alanine Aminotransferase (ALT/SGPT) 104 U/L Total Bilirubin 0.8 MG/DL Sodium Level 139 MEQ/L Potassium Level 4.1 MEQ/L Chloride Level 107 MEQ/L Carbon Dioxide Level 21.6 MEQ/L Anion Gap 10 MEQ/L Estimat Glomerular Filtration Rate 67 ML/MIN Culture Results Microbiology Date/Time Source Procedure Growth Status 09/11/17 05:35 Blood Peripheral Aerobic Blood Culture - Preliminary NO GROWTH IN 1 DAY Resulted 09/11/17 05:35 Blood Peripheral Anaerobic Blood Culture - Preliminary NO GROWTH IN 1 DAY Resulted 09/11/17 05:25 Blood Peripheral Aerobic Blood Culture - Preliminary NO GROWTH IN 1 DAY Resulted 09/11/17 05:25 Blood Peripheral Anaerobic Blood Culture - Preliminary NO GROWTH IN 1 DAY Resulted Administered Medications Medications (Trade) Dose Ordered Sig/Kory Route PRN Reason Start Time Stop Time Status Last Admin Dose Admin Sodium Chloride (NS Flush) 2 ml BID IV FLUSH 09/11/17 09:00 09/12/17 09:24 Aspirin (Aspirin Chew) 81 mg DAILY CHEW 09/11/17 09:00 09/12/17 09:22 Atorvastatin Calcium (Lipitor) 80 mg HS PO 09/11/17 21:00 09/11/17 22:03 Divalproex Sodium (Depakote Er) 250 mg BID PO 09/11/17 09:00 09/12/17 09:23 Famotidine (Pepcid) 20 mg BID PO 09/11/17 09:00 09/12/17 09:22 Levothyroxine Sodium (Synthroid) 50 mcg DAILY@0600 PO 09/11/17 06:00 09/12/17 06:34 Metoprolol Succinate (Toprol Xl) 25 mg BID PO 09/11/17 09:00 09/12/17 09:22 Oxycodone HCl (Roxicodone) 5 mg Q6H PRN PO PAIN 09/11/17 07:00 09/11/17 16:10 Potassium Chloride (KCl) 10 meq DAILY PO 09/11/17 09:00 09/12/17 09:23 Ceftriaxone Sodium 1000 mg/ Sodium Chloride 100 ml @ 200 mls/hr Q24H IV 09/12/17 06:00 09/12/17 07:42 Azithromycin (Zithromax) 500 mg Q24H PO 09/12/17 07:00 09/12/17 06:34 Enoxaparin Sodium (Lovenox Inj) 80 mg Q12H SQ 09/12/17 08:00 09/12/17 09:22 Furosemide (Lasix) 20 mg BID@0900,1800 PO 09/12/17 09:00 09/12/17 09:23 Objective Remarks GENERAL: Older male resting in bed in no obvious distress SKIN: Warm and dry. HEAD: Normocephalic. EYES: No injection or drainage. NECK: Supple, trachea midline. CARDIOVASCULAR: Regular rate and rhythm without murmurs. Midline incision to chest. Well approximated with no erythema noted RESPIRATORY: Clear anteriorly. Breathing unlabored at rest. GASTROINTESTINAL: Abdomen soft, non-tender, nondistended. EXTREMITIES: No cyanosis. Right lower extremity has generalized edema MUSCULOSKELETAL: Adequate muscle tone. NEUROLOGICAL: No obvious focal deficit. Awake, alert, and oriented x3. Assessment/Plan Problem List: (1) Pulmonary embolism ICD Codes: I26.99 - Other pulmonary embolism without acute cor pulmonale Plan: --Provoked from recent cardiovascular surgery and immobility --Likely stemming from right lower extremity DVT Assessment 72 y/o male with recent cardiovascular surgery admitted for pulmonary embolism Plan 1. Continue Lovenox today. 2. Can start Eliquis tomorrow if he has no bleeding and hemoglobin stable; he has received his free 30 day coupon from [employer]. 3. [facility] Attending Statement The exam, history, and the medical decision-making described in the above note were completed with the assistance of the mid-level provider. I reviewed and agree with the findings presented. I attest that I had a [id number] encounter with the patient on the same day, and personally performed and documented my assessment and findings in the medical record. Pt seen and examined. R leg less red and less swollen, feels better when he stands on it. Able to walk to BR. Cont Lovenox. Anticipate transition to NOAC with free coupon when DC. He is advised to fu / [facility] PCP to convert to [place] formulary anticoagulant. Ok for DC from heme/onc standpoint. Kae Hickey Sep 12, 2017 13:56 Roseann Erickson MD Sep 12, 2017 18:04
[2017-09-12] MEDS: ATORVASTATIN 80 MG TAB PO SCH (22:18)
[2017-09-13] VITALS (12 sets, daily range): BP systolic 110–142; BP diastolic 65–95; PULSE 79–142; RESP 18; TEMP 97.6–98.4; O2SAT 94–96
[2017-09-13] MEDS: FAMOTIDINE 20 MG TAB PO SCH ×2 (02:25→08:24)
[2017-09-13] MEDS: LEVOTHYROXINE SODIUM 50 MCG TAB PO SCH (05:12)
[2017-09-13] MEDS: AZITHROMYCIN 250 MG TAB PO SCH (05:12)
[2017-09-13] MEDS: cefTRIAXone INJ 1,000 MG in SODIUM CHLORIDE 0.9% INJ 100 ML IV SCH (05:13)
[2017-09-13 06:48] LABS: AUTOMATED NEUTROPHIL # 6.8 TH/MM3 (1.8-7.7); BASOPHIL # 0.1 TH/MM3 (0-0.2); BASOPHIL % 0.8 % (0.0-2.0); EOSINOPHIL # 0.3 TH/MM3 (0-0.4); EOSINOPHIL % 3.1 % (0.0-4.0); HEMATOCRIT 34.4 % (39.0-51.0); HEMOGLOBIN 11.6 GM/DL (13.0-17.0); LYMPHOCYTE # 2.1 TH/MM3 (1.0-4.8); MEAN CELL VOLUME 90.4 FL (80.0-100.0); MEAN CORPUSCULAR HEMOGLOBIN 30.4 PG (27.0-34.0); MEAN CORPUSCULAR HGB CONC 33.7 % (32.0-36.0); MEAN PLATELET VOLUME 8.9 FL (7.0-11.0); MONO % 11.8 % (0.0-8.0); MONOCYTE # 1.2 TH/MM3 (0-0.9); NEUT % 64.3 % (16.0-70.0); PLATELET COUNT 322 TH/MM3 (150-450); RED BLOOD COUNT 3.81 MIL/MM3 (4.50-5.90); RED CELL DISTRIBUTION WIDTH 14.6 % (11.6-17.2); WHITE BLOOD COUNT 10.5 TH/MM3 (4.0-11.0)
[2017-09-13] MEDS: POTASSIUM CHLORIDE 10 MEQ CONTROLLED RELEASE TAB PO SCH (08:23)
[2017-09-13] MEDS: DIVALPROEX SODIUM E.R. 250 MG TAB PO SCH (08:23)
[2017-09-13] MEDS: ENOXAPARIN SODIUM 80 MG/0.8 ML SYRINGE SQ SCH (08:23)
[2017-09-13] MEDS: SODIUM CHLORIDE 0.9% FLUSH 10 ML FLUSH IV FLUSH SCH (08:24)
[2017-09-13] MEDS: METOPROLOL SUCCINATE 25 MG EXTENDED RELEASE TAB PO SCH (08:24)
[2017-09-13] MEDS: ASPIRIN 81 MG CHEW TAB CHEW SCH (08:24)
[2017-09-13] MEDS: FUROSEMIDE 20 MG TAB PO SCH ×2 (08:26→18:20)
--- NOTE | 2017-09-13 09:50 | HHI.FF ---
Face to Face Verification Diagnosis: (1) Pulmonary embolism (2) DVT of lower limb, acute (3) HCAP (healthcare-associated pneumonia) Physical Therapy Order: Evaluate and Treat Home Health Nursing Order: Medical education Signs/symptoms of disease process I have seen patient Merrick Millard on 09/13/17. My clinical findings support the need for the requested home health care services because: Patient has SOB Deconditioned w/ increased weakness I certify that my clinical findings support that this patient is homebound because: Poor cardiac reserve Maurisio Donis MD Sep 13, 2017 09:50
--- NOTE | 2017-09-13 12:33 | HHI.PR ---
Subjective Remarks Follow-up pulmonary embolism/right lower extremity DVT/hospital-acquired pneumonia 09/12/17-patient seen and examined, reports improvement of right lower extremity swelling and denies any significant shortness of breath. No acute event overnight 09/13/17-patient seen and examined, stable, no complaints. States swelling to right lower extremity is decreasing Objective Vitals Vital Signs Date Time Temp Pulse Resp B/P (MAP) Pulse Ox O2 Delivery O2 Flow Rate FiO2 09/13/17 12:00 97.6 86 18 110/65 (80) 96 09/13/17 09:24 18 09/13/17 08:00 97.9 81 18 130/75 (93) 95 09/13/17 07:00 81 09/13/17 06:00 79 09/13/17 05:57 79 09/13/17 05:00 98.2 89 18 130/70 (90) 95 09/13/17 04:00 80 09/13/17 04:00 98.2 84 18 142/95 (111) 95 09/13/17 03:00 82 09/13/17 02:00 83 09/13/17 01:00 86 09/13/17 00:00 142 09/12/17 23:37 98.2 129 18 116/73 (87) 95 09/12/17 23:00 86 09/12/17 22:00 92 09/12/17 21:00 94 09/12/17 20:00 98.2 82 18 115/70 (85) 95 09/12/17 20:00 92 09/12/17 19:00 92 Nasal Cannula 4.00 09/12/17 19:00 146 09/12/17 18:00 93 09/12/17 17:09 93 Nasal Cannula 4.00 09/12/17 17:00 94 09/12/17 16:00 92 09/12/17 15:40 97.5 94 18 107/67 (80) 97 09/12/17 15:10 173 09/12/17 15:00 150 09/12/17 14:00 88 09/12/17 13:00 82 I/O 09/12/17 09/12/17 09/12/17 09/13/17 09/13/17 09/13/17 06:59 14:59 22:59 06:59 14:59 22:59 Intake Total 240 ml 1099 ml 240 ml Output Total 550 ml 525 ml 600 ml Balance -310 ml 574 ml -360 ml Intake Oral 240 ml 960 ml 240 ml IV Total 139 ml Output Urine Total 550 ml 525 ml 600 ml # Voids 2 2 # Bowel Movements 1 Result Diagram: 09/13/17 0516 09/12/17 0825 Imaging Last Impressions Lower Extremity Ultrasound 09/11/17151 Signed Impressions: Service Date/Time: Monday, September 11, 2017 02:32 - CONCLUSION: Positive for deep venous thrombosis in the proximal calf and popliteal region. James Cid MD Chest X-Ray 09/11/17151 Signed Impressions: Service Date/Time: Monday, September 11, 2017 02:01 - CONCLUSION: Left lower lung consolidation. James Cid MD CT Angiography 09/11/17151 Signed Impressions: Service Date/Time: Monday, September 11, 2017 04:23 - CONCLUSION: 1. Positive for pulmonary embolism with multiple segmental and subsegmental defects involving right upper, right middle, right lower, left upper, and left lingular segments. 2. Left lower lobe consolidation and pleural effusion. James Cid MD Objective Remarks GENERAL: NAD SKIN: Warm and dry. HEAD: Normocephalic. EYES: No scleral icterus. No injection or drainage. NECK: Supple, trachea midline. No JVD or lymphadenopathy. CARDIOVASCULAR: Regular rate and rhythm without murmurs, gallops, or rubs. RESPIRATORY: Breath sounds equal bilaterally. No accessory muscle use. GASTROINTESTINAL: Abdomen soft, non-tender, nondistended. MUSCULOSKELETAL: No cyanosis, or edema. RLE>LLE in size BACK: Nontender without obvious deformity. No CVA tenderness. Procedures none A/P Problem List: (1) Pulmonary embolism ICD Code: I26.99 - Other pulmonary embolism without acute cor pulmonale Status: Acute (2) DVT of lower limb, acute ICD Code: I82.409 - Acute embolism and thrombosis of unspecified deep veins of unspecified lower extremity Status: Acute (3) HCAP (healthcare-associated pneumonia) ICD Code: J18.9 - Pneumonia, unspecified organism (4) CAD (coronary artery disease) ICD Code: I25.10 - Atherosclerotic heart disease of [place] coronary artery without angina pectoris Assessment and Plan Pulmonary embolism Right lower extremity DVT CTA with finding of pulmonary embolism Right lower extremity Doppler positive for DVT s/p heparin drip and currently on Lovenox subcutaneous every 12 hours per hematology mo; however will discontinue it today September 13 treated Starts Eliquis 5 mg twice a day tonight 09/13/17 Hospital acquired pneumonia in a patient with recent hospitalization CTA positive for left lower lobe consolidation Continue Rocephin and azithromycin Leukocytosis Secondary to above infectious process Recent CABG 08/30/17 CAD Continue outpatient medications History of hypertension, hyperlipidemia, history of seizure disorder, hypothyroid disorder Continue outpatient medications Transaminitis 2/2 Statin However trending down since admission DVT prophylaxis: Lovenox Problem Qualifiers (1) Pulmonary embolism: (2) DVT of lower limb, acute: Maurisio Donis MD Sep 13, 2017 12:33
[2017-09-13] MEDS ORDERED: APIX5TAB PO (12:34)
[2017-09-13] MEDS ORDERED: AZIT250T3 PO (12:35)
--- NOTE | 2017-09-13 12:41 | HHI.DS ---
Discharge Summary Admission Date Sep 11, 2017 at 04:19 Discharge Date: Sep 13, 2017 Admitting Diagnosis DVT post CABG on 08/30 (1) Pulmonary embolism ICD Code: I26.99 - Other pulmonary embolism without acute cor pulmonale Status: Acute (2) DVT of lower limb, acute ICD Code: I82.409 - Acute embolism and thrombosis of unspecified deep veins of unspecified lower extremity Status: Acute (3) HCAP (healthcare-associated pneumonia) ICD Code: J18.9 - Pneumonia, unspecified organism (4) CAD (coronary artery disease) ICD Code: I25.10 - Atherosclerotic heart disease of [place] coronary artery without angina pectoris Procedures none Brief History - From Admission 72-year-old man with a history of CAD, with recent CABG 4 on 08/30/17 presented to the ED for evaluation of 2-3 days history of right lower extremity swelling and pain rated 4/10 in intensity however without any complaint of shortness of breath. Patient states, after his surgery on 08/30/17 was discharged home on 09/03/17, however did not have any complaint of right lower extremity swelling at a time. 2-3 days post discharge patient noticed some swelling of his right lower extremity mostly secondary to ambulation. He also noted dizziness however denies any shortness of breath. When patient presented to the ED, he had positive Lower extremity Doppler as well as CTA for PE. He denies any GI bleed. CBC/BMP: 09/13/17 0516 09/12/17 0825 Significant Findings Laboratory Tests Test 09/11/17 02:10 09/11/17 02:25 09/11/17 03:40 09/11/17 09:45 White Blood Count 14.7 TH/MM3 (4.0-11.0) 14.2 TH/MM3 (4.0-11.0) Red Blood Count 3.88 MIL/MM3 (4.50-5.90) 3.89 MIL/MM3 (4.50-5.90) Hemoglobin 11.9 GM/DL (13.0-17.0) 11.8 GM/DL (13.0-17.0) Hematocrit 35.4 % (39.0-51.0) 35.5 % (39.0-51.0) Neutrophils (%) (Auto) 75.0 % (16.0-70.0) Monocytes (%) (Auto) 11.6 % (0.0-8.0) Neutrophils # (Auto) 11.1 TH/MM3 (1.8-7.7) Monocytes # (Auto) 1.7 TH/MM3 (0-0.9) Prothrombin Time 13.0 SEC (9.8-11.6) Blood Urea Nitrogen 21 MG/DL (7-18) Creatinine 1.39 MG/DL (0.60-1.30) Albumin 2.7 GM/DL (3.4-5.0) Calcium Level 8.2 MG/DL (8.5-10.1) Aspartate Amino Transf (AST/SGOT) 108 U/L (15-37) Alanine Aminotransferase (ALT/SGPT) 121 U/L (12-78) Total Bilirubin 1.1 MG/DL (0.2-1.0) Estimat Glomerular Filtration Rate 50 ML/MIN (>89) Creatine Kinase MB LESS THAN 0.5 NG/ML Troponin I 0.14 NG/ML (0.02-0.05) C-Reactive Protein 14.70 MG/DL (0.00-0.30) B-Type Natriuretic Peptide 543 PG/ML (0-100) Urine Mucus FEW /lpf (OCC) Activated Partial Thromboplast Time 22.7 SEC (24.3-30.1) 93.3 SEC (24.3-30.1) Test 09/11/17 13:30 09/11/17 22:26 09/12/17 08:25 09/13/17 05:16 Activated Partial Thromboplast Time 47.8 SEC (24.3-30.1) 43.9 SEC (24.3-30.1) 34.2 SEC (24.3-30.1) White Blood Count 11.3 TH/MM3 (4.0-11.0) Red Blood Count 3.69 MIL/MM3 (4.50-5.90) 3.81 MIL/MM3 (4.50-5.90) Hemoglobin 11.2 GM/DL (13.0-17.0) 11.6 GM/DL (13.0-17.0) Hematocrit 33.8 % (39.0-51.0) 34.4 % (39.0-51.0) Neutrophils (%) (Auto) 73.4 % (16.0-70.0) Monocytes (%) (Auto) 10.2 % (0.0-8.0) 11.8 % (0.0-8.0) Neutrophils # (Auto) 8.3 TH/MM3 (1.8-7.7) Monocytes # (Auto) 1.2 TH/MM3 (0-0.9) 1.2 TH/MM3 (0-0.9) Albumin 2.3 GM/DL (3.4-5.0) Calcium Level 8.0 MG/DL (8.5-10.1) Aspartate Amino Transf (AST/SGOT) 86 U/L (15-37) Alanine Aminotransferase (ALT/SGPT) 104 U/L (12-78) Estimat Glomerular Filtration Rate 67 ML/MIN (>89) Imaging Last Impressions Lower Extremity Ultrasound 09/11/17151 Signed Impressions: Service Date/Time: Monday, September 11, 2017 02:32 - CONCLUSION: Positive for deep venous thrombosis in the proximal calf and popliteal region. James Cid MD Chest X-Ray 09/11/17151 Signed Impressions: Service Date/Time: Monday, September 11, 2017 02:01 - CONCLUSION: Left lower lung consolidation. James Cid MD CT Angiography 09/11/17151 Signed Impressions: Service Date/Time: Monday, September 11, 2017 04:23 - CONCLUSION: 1. Positive for pulmonary embolism with multiple segmental and subsegmental defects involving right upper, right middle, right lower, left upper, and left lingular segments. 2. Left lower lobe consolidation and pleural effusion. James Cid MD PE at Discharge GENERAL: NAD SKIN: Warm and dry. HEAD: Normocephalic. EYES: No scleral icterus. No injection or drainage. NECK: Supple, trachea midline. No JVD or lymphadenopathy. CARDIOVASCULAR: Regular rate and rhythm without murmurs, gallops, or rubs. RESPIRATORY: Breath sounds equal bilaterally. No accessory muscle use. GASTROINTESTINAL: Abdomen soft, non-tender, nondistended. MUSCULOSKELETAL: No cyanosis, or edema. RLE>LLE in size BACK: Nontender without obvious deformity. No CVA tenderness. Hospital Course While in the hospital, patient was treated for Pulmonary embolism Right lower extremity DVT CTA with finding of pulmonary embolism Right lower extremity Doppler positive for DVT s/p heparin drip and currently on Lovenox subcutaneous every 12 hours per hematology mo; however this was discontinued and patient started on OAC Started on Eliquis 5 mg twice a day 09/13/17 Hospital acquired pneumonia in a patient with recent hospitalization CTA positive for left lower lobe consolidation He was treated with Rocephin and azithromycin Leukocytosis Secondary to above infectious process Recent CABG 08/30/17 CAD Continued on his outpatient medications History of hypertension, hyperlipidemia, history of seizure disorder, hypothyroid disorder Continued with his outpatient medications Transaminitis 2/2 Statin However trending down since admission DVT prophylaxis: Lovenox Pt Condition on Discharge: Good Discharge Disposition: Disch w/ Home Health Serv Discharge Time: > 30 minutes Discharge Instructions DIET: Follow Instructions for: Heart Healthy Diet Activities you can perform: Regular-No Restrictions Follow up Referrals: Oncology PCP Follow-up - 1 Week New Medications: Apixaban (Eliquis) 5 Mg Tab 5 MG PO BID for Prevent Blood Clot, #60 TAB 3 Refills Azithromycin (Azithromycin) 250 Mg Tab 500 MG PO Q24H for Infection, #4 TAB Continued Medications: Aspirin (Aspirin Children's) 81 Mg Chew 81 MG CHEW DAILY, TAB 0 Refills Atorvastatin (Atorvastatin) 80 Mg Tab 80 MG PO HS for Cholesterol Management, #30 TAB 0 Refills Divalproex ER (Divalproex ER) 250 Mg Pedro 250 MG PO BID for Control Seizures, #30 TAB 0 Refills Famotidine (Famotidine) 20 Mg Tab 20 MG PO BID, #60 TAB 0 Refills Furosemide (Furosemide) 20 Mg Tab 20 MG PO BID, #60 TAB 0 Refills Levothyroxine (Levothyroxine) 50 Mcg Tab 50 MCG PO DAILY for Thyroid, #30 TAB 0 Refills Metoprolol Succinate ER 24 HR (Metoprolol Succinate ER 24 HR) 25 Mg Tab 25 MG PO BID, #30 TAB 0 Refills Oxycodone (Oxycodone) 5 Mg Tab 5 MG PO Q6H PRN for PAIN, TAB 0 Refills Potassium Chloride ER (Potassium Chloride ER) 10 Meq Tab 10 MEQ PO DAILY for Electrolyte Replacement, #30 TAB 0 Refills Maurisio Donis MD Sep 13, 2017 12:41
[2017-09-13] MEDS: APIXABAN 5 MG TABLET PO SCH ×2 (18:20→18:28)
--- NOTE | 2017-09-13 20:00 | EKG ---
Date Performed: 09/12/2017 Time Performed: 14:37:40 PTAGE: 72 years EKG: Sinus rhythm Leftward axis Septal T wave changes are nonspecific Since previous tracing, no significant change no jesus Borderline ECG PREVIOUS TRACING : 09/11/2017 01.53 DOCTOR: Rich Kamara Interpretating Date/Time 09/13/2017 19:56:15
== END 2017-09-13 19:02 | disposition home or self-care (01) | DRG 175 ==
LOC: NEPE 01:15 → NEDA 04:19 → HCIS 15:32
PROVIDERS: ADMIT Family Medicine; ATTEND Family Medicine
DX: I26.99 Other pulmonary embolism without acute cor pulmonale (principal); J18.9 Pneumonia, unspecified organism; I82.431 Acute embolism and thrombosis of right popliteal vein; D64.9 Anemia, unspecified; I10 Essential (primary) hypertension; S89.91XA Unspecified injury of right lower leg, initial encounter; I82.4Z1 Acute embolism and thrombosis of unspecified deep veins of right distal lower extremity; E03.9 Hypothyroidism, unspecified; Z79.82 Long term (current) use of aspirin; I25.10 Atherosclerotic heart disease of native coronary artery without angina pectoris; K59.00 Constipation, unspecified; E78.5 Hyperlipidemia, unspecified; M79.671 Pain in right foot; M79.601 Pain in right arm; R79.82 Elevated C-reactive protein (CRP); N28.9 Disorder of kidney and ureter, unspecified; Y95 Nosocomial condition; D72.829 Elevated white blood cell count, unspecified; R74.0 Nonspecific elevation of levels of transaminase and lactic acid dehydrogenase [LDH]; X50.1XXA Overexertion from prolonged static or awkward postures, initial encounter; Z95.1 Presence of aortocoronary bypass graft; Z98.890 Other specified postprocedural states; Z82.49 Family history of ischemic heart disease and other diseases of the circulatory system
CPT/HCPCS: 71045; 71275; 80053; 81001; 82550; 82552; 83735; 83880; 84484; 85025; 85027; 85610; 85730; 86140; 87040; 93005; 93971; 96365; 96375; J0456; J0696; J1644; J1650; J7050; Q9967